=== PATIENT | female | born 1955 ===

== ENCOUNTER 2018-03-28 10:09 | Emergency (ER) | payer OTHER ==
[~2018-03-28] VITALS: Ht 160 cm; Wt 79.4 kg
== END 2018-03-28 14:47 | disposition home or self-care (01) ==
LOC: ER 10:09
DX: K29.70 Gastritis, unspecified, without bleeding (principal); K21.9 Gastro-esophageal reflux disease without esophagitis

== ENCOUNTER 2018-10-31 07:10 | Outpatient (CLI) | payer OTHER | END 2018-10-31 07:17 | disposition home or self-care (01) | LOC: SONOGRAMA 07:10 → MAMO-SONO 07:15 → SONOGRAMA 07:17 | DX: E03.8 Other specified hypothyroidism (principal) ==

== ENCOUNTER → 2019-02-22 | Outpatient (CLI) | payer OTHER | END | disposition home or self-care (01) | LOC: SONOGRAMA 07:45 | DX: R10.2 Pelvic and perineal pain (principal); C64.1 Malignant neoplasm of right kidney, except renal pelvis ==